=== PATIENT | female | born 1970 | race Caucasian/White ===

== ENCOUNTER 2017-11-24 12:26 | Emergency (ER) | payer BC, OTHER ==
--- NOTE | 2017-11-24 13:00 | EDM.PDOC ---
ED HPI GENERAL MEDICAL PROBLEM - General Chief Complaint: Laceration Stated Complaint: W/COMP,FELL AT WORK, LUMP ON FOREHEAD Time Seen by Provider: 11/24/17 12:50 Source of Information: Reports: Patient History Limitations: Reports: No Limitations - History of Present Illness INITIAL COMMENTS - FREE TEXT/NARRATIVE: This 47 yo female patient reports to the ED due to a ground level fall. The patient reports she was working at [employer] when she tripped and hit her head. The patient reports no loss of consciousness before, during or after. The patient reports that she has had a headache all day, took Tylenol, but continues to have a headache. The patient has a contusion to her left forehead with and abrasion to the area. 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 [No Known Home Meds] 11/24/17 [History] ED ROS GENERAL - Review of Systems Review Of Systems: ROS reveals no pertinent complaints other than HPI. ED EXAM, SKIN/RASH Exam: See Below Exam Limited By: No Limitations General Appearance: Alert, WD/WN, Moderate Distress Eye Exam: Bilateral Eye: EOMI, Normal Inspection, PERRL Ears: Normal External Exam, Normal Canal, Hearing Grossly Normal, Normal TMs Nose: Normal Inspection, Normal Mucosa, No Blood Throat/Mouth: Normal Inspection, Normal Lips, Normal Teeth, Normal Gums, Normal Oropharynx, Normal Voice, No Airway Compromise Head: Other (The patient has a contusion to her left forehead with an abrasion over the area. The bleeding was controlled at the time of the assessment. ) Neck: Normal Inspection, Supple, Non-Tender, Full Range of Motion Respiratory/Chest: No Respiratory Distress, Lungs Clear, Normal Breath Sounds, No Accessory Muscle Use, Chest Non-Tender Cardiovascular: Normal Peripheral Pulses, Regular Rate, Rhythm, No Edema, No Gallop, No JVD, No Murmur, No Rub GI/Abdominal: Normal Bowel Sounds, Soft, Non-Tender, No Organomegaly, No Distention, No Abnormal Bruit, No Mass (Female) Exam: Deferred Rectal (Female) Exam: Deferred Back Exam: Normal Inspection, Full Range of Motion, NT Extremities: Normal Range of Motion, Non-Tender, No Pedal Edema, Normal Capillary Refill, Other (The patient has an abrasion to the right 5th finger with no current bleeding) Psychiatric: Normal Affect, Normal Mood Skin: Warm, Dry, Wound/Incision (abrasion to left forehead, abrasion to left 5th finger ) Location, Skin: Face Lymphatic: No Adenopathy Course - Vital Signs Last Recorded V/S: Last Vital Signs Temp 36.1 C 11/24/17 12:44 Pulse 94 11/24/17 12:44 Resp 18 11/24/17 12:44 BP 143/97 H 11/24/17 12:44 Pulse Ox 98 11/24/17 12:44 Departure - Departure Time of Disposition: 13:39 Disposition: Home, Self-Care 01 Condition: Fair Clinical Impression: Contusion of forehead Qualifiers: Encounter type: initial encounter Qualified Code(s): S00.83XA - Contusion of other part of head, initial encounter - Discharge Information Instructions: Facial or Scalp Contusion, [id number] Forms: ED Department Discharge Care Plan Goals: The patient was advised of the examination and CT results during the visit. The patient was encouraged to rest and ice the area. If the patient has any additional symptoms or concerns, the patient should follow-up with her primary care facility or return to the emergency department.
--- NOTE | 2017-11-24 13:29 | CT ---
Clinical history: 47 year-old 208 pound female emergency department with head trauma (injured over le ft eye fall on concrete).. Scan technique: Volume acquisition of data emergency unenhanced CT scan of the head and brain obtained with patient lying supine on the Siemens multi slice scanner [facility]. All data archived in the PAC system for storage and study (bone/b rain windows). Interpretation: 1. Acute huge extracranial hematoma frontally level above the orbits, centrally and left of midline. 2. No sign of underlying bony fracture or fluid in the sinuses. Nasal septum is straight in the midli ne. No foreign bodies. 3. No evidence of underlying or contrecoup brain contusion. Uniformly thick bony calvarium. Clear mas toid sinuses. 4. Symmetric dahl-white matter pattern and underlying mirror-image normal ventricular system. Physiol ogic midline pineal and symmetric choroid plexus calcifications. No epidural or subdural hematomas. 5. No supratentorial or posterior fossa mass lesion. No hydrocephalus. 6. No focal areas of ischemic infarct or signs of acute intracerebral/intraventricular/subarachnoid b leed. CONCLUSION: Large frontal scalp hematoma. No fractures or signs of closed head injury.
== END 2017-11-24 14:04 | disposition home or self-care (01) ==
LOC: DL.ED 12:26
DX: S00.83XA Contusion of other part of head, initial encounter (principal); Z88.1 Allergy status to other antibiotic agents; Z88.0 Allergy status to penicillin; W01.10XA Fall on same level from slipping, tripping and stumbling with subsequent striking against unspecified object, initial encounter
CPT/HCPCS: 70450; 99283

== ENCOUNTER 2023-01-27 06:02 | Day surgery (SDC) | payer OTHER ==
[~2023-01-27 06:02] MED LIST: Sodium Chloride 0.9% 10 ML Syringe FLUSH PRN
[2023-01-27] MEDS ORDERED: Midazolam 1 MG/ML 2 ML SDV ONE (06:54)
[2023-01-27] MEDS ORDERED: fentaNYL 100 MCG/2 ML SDV ONE (06:55)
[2023-01-27] MEDS: Dextrose 5%-0.45% NaCl 1,000 ML IV SCH (07:09)
[2023-01-27] MEDS: fentaNYL 100 MCG/2 ML SDV IV ONE ×5 (08:03→08:18)
[2023-01-27] MEDS: Midazolam 1 MG/ML 2 ML SDV IV ONE ×6 (08:04→08:11)
[2023-01-28] MEDS ORDERED: Sodium Chloride 0.9% 10 ML Syringe FLUSH SCH (09:00)
== END 2023-01-27 09:34 | disposition home or self-care (01) ==
LOC: DL.ENDO 06:02
PROVIDERS: ATTEND Internal Medicine Gastroenterology
DX: Z12.11 Encounter for screening for malignant neoplasm of colon (principal); E66.09 Other obesity due to excess calories; R03.0 Elevated blood-pressure reading, without diagnosis of hypertension; Z68.37 Body mass index [BMI] 37.0-37.9, adult
CPT/HCPCS: J2250; J3010; J7042